=== PATIENT | female | born 1955 | race Caucasian/White ===

== ENCOUNTER → 2017-03-21 | Outpatient (CLI) | payer OTHER | LOC: FIMAGING 09:58 | PROVIDERS: ATTEND Internal Medicine | DX: R41.89 Other symptoms and signs involving cognitive functions and awareness (principal); R29.818 Other symptoms and signs involving the nervous system ==

== ENCOUNTER 2018-04-19 05:35 | Emergency (ER) | payer OTHER ==
[2018-04-19] MEDS ORDERED: fentaNYL 100 MCG/2 ML INJ IVP ONE (06:08)
[2018-04-19] MEDS ORDERED: NS 1,000 ML IV ONE (06:08)
[2018-04-19] MEDS ORDERED: ONDANSETRON 4 MG/2 ML VIAL IVP ONE ×2 (06:08→07:11)
[2018-04-19 06:19] LABS: PLATELET COUNT 243 10^3/uL (150-400)
--- NOTE | 2018-04-19 06:52 | EDPHY ---
H & P Stated Complaint: Abd pain, sore throat, generalized weakness, n/v - Personal History Current Tetanus Diphtheria and Acellular Pertussis (TDAP): Yes Tetanus Vaccine Date: UNSURE OF DATE - Medical/Surgical History Hx Asthma: No Hx Chronic Respiratory Disease: No Hx Diabetes: No Hx Cardiac Disease: No Hx Renal Disease: Yes Hx Cirrhosis: No Hx Alcoholism: No Hx HIV/AIDS: No Hx Splenectomy or Spleen Trauma: No Other PMH: CHRONIC PAIN/MEDICAL DETOX OFF OPIODS HYSTERECTOMY ENDOMETRIAL CANCER HYPER PARATHYROID - Social History Smoking Status: Never smoked Time Seen by Provider: 04/19/18 05:56 HPI/ROS: Chief Complaint: Sore throat, nausea, vomiting, abdominal pain HPI: 62-year-old woman began having sore throat on Friday. Yesterday she was fatigued and started developing nausea and vomiting. She was unable to keep anything down. She does have a history of irritable bowel takes buprenophone 3 times a day to manage this. She has been unable to take her medications. No coffee grounds or blood in her emesis. No dark tarry stools or blood in her stools. No constipation or diarrhea. She says this morning she has developed low abdominal cramping which is consistent with prior irritable bowel symptoms. ROS: 10 point Review of Systems is negative except as noted in the HPI. Social History: No smoking, no alcohol, no recreational drug use Family History: non-contributory Physical Exam: Gen: Awake, Alert, No Distress HEENT: Nose: no rhinorrhea Eyes: PERRLA, EOMI Mouth: Moist mucosa Neck: Supple, no JVD Chest: nontender, lungs clear to auscultation Heart: S1, S2 normal, no murmur Abd: Soft, non-tender, no guarding Back: no CVA tenderness, no midline tenderness Ext: no edema, non-tender Skin: no rash Neuro: CN II-XII intact, Sensation grossly intact, Strength 5/5 in bilateral upper and lower extremities (Talat Valentino) Constitutional: Initial Vital Signs Temperature (C) 36.5 C 04/19/18 05:40 Heart Rate 104 H 04/19/18 05:40 Respiratory Rate 20 04/19/18 05:40 Blood Pressure 139/70 H 04/19/18 05:40 O2 Sat (%) 97 04/19/18 05:40 O2 Delivery Mode Room Air Allergies/Adverse Reactions: oxycodone HCl [From Percocet] Allergy (Severe, Verified 04/19/18 05:39) NAUSEA Sulfa (Sulfonamide Antibiotics) Allergy (Unknown, Verified 04/19/18 05:39) alprazolam [From Xanax] Allergy (Verified 04/19/18 05:39) ANXIETY AND SHAKES metoclopramide HCl [From Reglan] Allergy (Verified 04/19/18 05:39) Home Medications: Medication Instructions Recorded Cymbalta 60 MG (RX) 09/09/13 Vistaril 09/03/16 traZODone 09/03/16 Medical Decision Making ED Course/Re-evaluation: Patient's laboratory evaluations are unremarkable. Patient has a soft benign abdomen. She has no complaining of abdominal pain and nausea. I have read just morphine and Zofran. Continue IV fluids. Patient signed out to Dr. Jenkins pending re-evaluation. I do not see any evidence of bowel obstruction or ischemia at this time. (Talat Valentino) This patient was signed out to me at change of shift. Upon re-evaluation the patient is anxious to go and feels better. She does not want any more pain medicine. She is no longer vomiting. She will follow up as indicated. (Vj Jenkins) - Data Points Laboratory Results: Laboratory Results 04/19/18 06:00 04/19/18 06:00 04/19/18 04/19/18 06:00 06:00 WBC 6.11 10^3/uL 10^3/uL (3.80-9.50) RBC 5.03 10^6/uL 10^6/uL (4.18-5.33) Hgb 15.0 g/dL g/dL (12.6-16.3) Hct 44.9 % % (38.0-47.0) MCV 89.3 fL fL (81.5-99.8) MCH 29.8 pg pg (27.9-34.1) MCHC 33.4 g/dL g/dL (32.4-36.7) RDW 12.7 % % (11.5-15.2) Plt Count 243 10^3/uL 10^3/uL (150-400) MPV 9.0 fL fL (8.7-11.7) Neut % (Auto) Not Reported Lymph % (Auto) Not Reported Pitkin % (Auto) Not Reported Eos % (Auto) Not Reported Baso % (Auto) Not Reported Nucleat RBC Rel Count Not Reported Absolute Neuts (auto) Not Reported Absolute Lymphs (auto) Not Reported Absolute Monos (auto) Not Reported Absolute Eos (auto) Not Reported Absolute Basos (auto) Not Reported Absolute Nucleated RBC Not Reported Immature Gran % Not Reported Seg Neutrophils % 87.3 % % Band Neutrophils % 0 % % Lymphocytes % 7.8 % % Monocytes % 4.9 % % Eosinophils % 0 % % Basophils % 0 % % Metamyelocytes % 0 % % Myelocytes % 0 % % Promyelocytes % 0 % % Blast Cells % 0 % % Immature Gran # Not Reported Absolute Seg Neuts 5.33 10^/uL 10^/uL (1.70-6.50) Absolute Band Neuts 0.00 10^3/uL 10^3/uL (0.00-0.70) Absolute Lymphocytes 0.48 10^3/uL L 10^3/uL (1.00-3.00) Absolute Monocytes 0.30 10^3/uL 10^3/uL (0.30-0.80) Absolute Eosinophils 0.00 10^3/uL L 10^3/uL (0.03-0.40) Absolute Basophils 0.00 10^3/uL L 10^3/uL (0.02-0.10) Absolute Metamyelocyte 0.00 10^3/mL 10^3/mL (0.00-0.00) Absolute Myelocytes 0.00 10^3/mL 10^3/mL (0.00-0.00) Absolute Promyelocytes 0.00 10^3/uL 10^3/uL (0.00-0.00) Absolute Plasma Cells 0.00 10^3/uL 10^3/uL (0.00-0.00) RBC/WBC/PLT Morphology NORMAL (NORMAL) Absolute Blast Cells 0.00 10^3/uL 10^3/uL (0.00-0.00) Plasma Cells % 0 % % Platelet Estimate DECREASED L (ADEQ) Sodium 140 mEq/L mEq/L (135-145) Potassium 4.5 mEq/L mEq/L (3.3-5.0) Chloride 105 mEq/L mEq/L (97-110) Carbon Dioxide 22 mEq/l mEq/l (22-31) Anion Gap 13 mEq/L mEq/L (8-16) BUN 15 mg/dL mg/dL (7-23) Creatinine 1.1 mg/dL H mg/dL (0.6-1.0) Estimated GFR 51 Glucose 135 mg/dL H mg/dL (70-100) Calcium 9.0 mg/dL mg/dL (8.5-10.4) Total Bilirubin 0.6 mg/dL mg/dL (0.1-1.4) AST 19 IU/L IU/L (14-46) ALT 34 IU/L IU/L (9-52) Alkaline Phosphatase 80 IU/L IU/L (38-126) Total Protein 7.0 g/dL g/dL (6.3-8.2) Albumin 4.0 g/dL g/dL (3.5-5.0) Lipase 101 IU/L IU/L (23-300) Medications Given: Discontinued Medications Fentanyl (Sublimaze) 50 mcg IVP EDNOW ONE Stop: 04/19/18 06:09 Last Admin: 04/19/18 06:14 Dose: 50 mcg Sodium Chloride (Ns) 1,000 mls @ 0 mls/hr IV ONCE ONE; Wide Open PRN Reason: Protocol Stop: 04/19/18 06:09 Last Admin: 04/19/18 06:15 Dose: 1,000 mls Morphine Sulfate (Morphine) 4 mg IVP ONCE ONE Stop: 04/19/18 07:12 Last Admin: 04/19/18 07:41 Dose: Not Given Ondansetron HCl (Zofran) 4 mg IVP EDNOW ONE Stop: 04/19/18 06:09 Last Admin: 04/19/18 06:17 Dose: 4 mg Ondansetron HCl (Zofran) 4 mg IVP EDNOW ONE Stop: 04/19/18 07:12 Last Admin: 04/19/18 07:40 Dose: 4 mg Departure - Departure Disposition: Home, Routine, Self-Care Clinical Impression: Dehydration Nausea and vomiting Qualifiers: Vomiting type: unspecified Vomiting Intractability: non-intractable Qualified Code(s): R11.2 - Nausea with vomiting, unspecified Condition: Good Instructions: Acute Nausea and Vomiting (ED), Dehydration (ED) Referrals: Annette Ford MD [Primary Care Provider] - As per Instructions
[2018-04-19 07:56] VITALS: BP 138/71
== END 2018-04-19 08:02 | disposition home or self-care (01) ==
DX: E86.0 Dehydration (principal); E86.9 Volume depletion, unspecified
CPT/HCPCS: 96374; J2270; J2405; J3010